=== PATIENT | female | born 1970 | race Caucasian/White ===

== ENCOUNTER 2024-12-10 19:27 | Emergency (ER) | payer BC ==
[2024-12-10] MEDS: Diphtheria,Pertussis(Acell),Tetanus Vaccine 0.5 ML Syringe IM ONE (20:06)
[2024-12-10] MEDS: Bacitracin Oint 1 GM U/D Packet TOP ONE (20:08)
[2024-12-10] MEDS: Take Home: Cephalexin 500 MG Cap, 6 Cap Pack PO ONE (20:38)
== END 2024-12-10 20:55 | disposition home or self-care (01) ==
LOC: DL.ED 19:27
DX: S62.635A Displaced fracture of distal phalanx of left ring finger, initial encounter for closed fracture (principal); S61.215A Laceration without foreign body of left ring finger without damage to nail, initial encounter; Z23 Encounter for immunization; W23.0XXA Caught, crushed, jammed, or pinched between moving objects, initial encounter; Y93.89 Activity, other specified
CPT/HCPCS: 12001; 73140; 90471; 90715; 99283; A9270; J2003